=== PATIENT | male | born 1960 | race Caucasian/White ===

== ENCOUNTER 2017-07-01 14:04 | Emergency (ER) | payer BC ==
[~2017-07-01] VITALS: Ht 175.3 cm; Wt 107.8 kg
[~2017-07-01 14:04] MED LIST: ASPEC81 PO; EZET10TA44 PO; NSP500 PO; OMEG10007 PO
[2017-07-01 14:15] VITALS: TEMP 36.7; Ht 175.3 cm; Wt 107.8 kg
[2017-07-01] MEDS ORDERED: XYLOCAINE 1%/SOD BICARB 20 ML VIAL INFIL ONE (14:30)
[2017-07-01] MEDS ORDERED: ASPI-435 PO (14:30)
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
[2017-07-01 15:49] VITALS: BP 134/79; PULSE 67; O2SAT 98
== END 2017-07-01 15:52 | disposition home or self-care (01) ==
LOC: C.EDB 14:05 → C.EDD 15:52
DX: S51.011A Laceration without foreign body of right elbow, initial encounter (principal); W01.10XA Fall on same level from slipping, tripping and stumbling with subsequent striking against unspecified object, initial encounter; M25.511 Pain in right shoulder; G89.29 Other chronic pain; Z87.891 Personal history of nicotine dependence; Z79.82 Long term (current) use of aspirin; Z83.3 Family history of diabetes mellitus; Z82.49 Family history of ischemic heart disease and other diseases of the circulatory system